=== PATIENT | female | born 1965 | race Caucasian/White ===

== ENCOUNTER 2017-08-09 17:50 | Emergency (ER) | payer BC ==
[~2017-08-09] VITALS: Ht 180.3 cm; Wt 68.5 kg
[~2017-08-09 17:50] MED LIST: ASCO500T3 PO; FERR500P8 MC
--- NOTE | 2017-08-09 18:11 | EKG ---
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
--- NOTE | 2017-08-09 18:34 | PHYS DOC ---
Past History Past Medical History: Anemia Past Surgical History: No Surgical History Alcohol Use: Occasionally Drug Use: None Adult General Chief Complaint Chief Complaint: CHEST PAIN HPI HPI Patient is a 51 year old F who presents with chest pain and weakness over the past 24 hours. Patient states she has felt weak actually over the past 3 days and the chest pain has been over the last 24 hours. Patient states the last time she felt this way she had severe anemia in 2014 in which she had to be admitted to the hospital and transfused. Patient states that it should be due to the anemia to heavy vaginal bleeding. Patient denies any previous cardiac history. Patient denies any smoking. Patient denies any PE or DVT risk factors. Patient denies any fevers. Patient denies any cough/cold/congestion. Patient has no other complaints. Review of Systems Review of Systems GEN: Weakness HEENT: Denies blurred vision, sore throat CV: Chest pain RESP: Denies shortness of air, cough GI: Denies n/v/d NEURO: Denies confusion, dizziness MSK: Denies weakness, joint pain/swelling All other systems were reviewed and found to be within normal limits, except as documented in this note. Allergies Allergies Allergies Coded Allergies Type Severity Reaction Last Updated Verified No Known Drug Allergies 02/24/15 No Physical Exam Physical Exam GEN.: No apparent distress. Alert and oriented. HEENT: Head is normocephalic, atraumatic NECK: Supple. LUNGS: CTAB. HEART: Tachycardia, S1, S2 present. Peripheral pulses intact ABDOMEN: Soft, nontender. Positive bowel sounds. EXTREMITIES: Without any cyanosis. NEUROLOGIC: Normal speech, normal tone PSYCHIATRIC: Normal affect, normal mood. SKIN: No ulcerations Current Patient Data Vital Signs Vital Signs Date Time Temp Pulse Resp B/P (MAP) Pulse Ox O2 Delivery O2 Flow Rate FiO2 08/09/17 18:13 98.2 116 18 100 Room Air EKG EKG 1803: EKG shows sinus tach rate of 109 no STEMI[] Radiology/Procedures Radiology/Procedures []Chest x-ray NAD Course & Med Decision Making Course & Med Decision Making Pertinent Labs and Imaging studies reviewed. (See chart for details) ED course: Patient was seen and examined emergency room cardiac workup was ordered along with a d-dimer and a chest x-ray Patient's d-dimer was negative Patient was reevaluated in which patient was asymptomatic having no chest pain. Patient was updated on lab results and radiology results. Patient's HEART score was 2. I had a discussion with the patient in regards to her cardiac risk factors and what her heart score of 2 means and patient was comfortable being discharged home with a cardiac workup as an outpatient. Patient did not want to be admitted to the hospital. I recommended short-term follow-up with PCP in one to 2 days and return if symptoms increase. MDM: After reviewing the chart, CC/HPI/PMH, physical exam, [lab results], [ radiological results], I do not believe the patient having acute SD (HEART score =2), PE, low suspicion for acute thoracic aortic dissection. On reexamination patient is asymptomatic having no chest pain. I believe patient stable for discharge. Recommended an outpatient cardiac workup based off her cardiac risk factors. Additional verbal discharge instructions were provided to the patient and that if symptoms get worse or any new symptoms arise that are worrisome to the patient she is to return to the emergency room immediately [] Dragon Disclaimer Dragon Disclaimer This electronic medical record was generated, in whole or in part, using a voice recognition dictation system. Departure Departure: Impression: Primary Impression: Chest pain Disposition: HOME, SELF-CARE Condition: IMPROVED Referrals: PCP,NO (PCP) Patient Instructions: Chest Pain (Nonspecific) Additional Instructions: Please follow-up with your family doctor in the next one to 2 days for outpatient cardiac workup and return symptoms increase. PIEDAD SZYMANSKI DO Aug 09, 2017 18:34
[2017-08-09 18:36] LABS: BASO # 0.1 x10^3/uL (0.0-0.2); BASO % 1 % (0-3); EOS # 0.1 x10^3/uL (0.0-0.7); EOS % 2 % (0-3); HEMATOCRIT 40.3 % (36.0-47.0); HEMOGLOBIN 13.6 g/dL (12.0-15.5); LYMPH # 1.6 x10^3/uL (1.0-4.8); LYMPH % 37 % (24-48); MEAN CORPUSCULAR HEMOGLOBIN 31 pg (25-35); MEAN CORPUSCULAR HGB CONC 34 g/dL (31-37); MEAN CORPUSCULAR VOLUME 92 fL (79-100); MONO # 0.6 x10^3/uL (0.0-1.1); MONO % 13 % (0-9); NEUT % 47 % (31-73); PLATELET COUNT 271 x10^3/uL (140-400); RED BLOOD COUNT 4.39 x10^6/uL (3.50-5.40); RED CELL DISTRIBUTION WIDTH 13.6 % (11.5-14.5); WHITE BLOOD COUNT 4.3 x10^3/uL (4.0-11.0)
[2017-08-09 18:42] LABS: ALBUMIN 4.1 g/dL (3.4-5.0); CALCIUM 9.8 mg/dL (8.5-10.1); CREATININE 0.7 mg/dL (0.6-1.0); GFR 88.9; POTASSIUM 3.3 mmol/L (3.5-5.1); TOTAL BILIRUBIN 0.5 mg/dL (0.2-1.0); TOTAL PROTEIN 8.3 g/dL (6.4-8.2)
[2017-08-09 20:03] LABS: BILIRUBIN,URINE NEG (NEG); CLARITY,URINE CLEAR; COLOR,URINE STRAW; GLUCOSE,URINE NEG (NEG)
[2017-08-09 20:04] LABS: BACTERIA,URINE MOD /HPF (0-FEW); NITRITE,URINE NEG (NEG); SQUAMOUS EPITHELIAL CELL,UR MANY /LPF; UROBILINOGEN,URINE 0.2 mg/dL (0.2 mg/dL)
[2017-08-09 20:15] VITALS: BP 132/86
--- NOTE | 2017-08-10 08:11 | RAD ---
Portable AP view CXR: Clinical indications: Chest pain today. Comparison: February 24, 2015 Findings: No acute lung infiltrate or pleural effusion or pulmonary edema or lung mass or pneumothorax is seen. The heart size, pulmonary vasculature, mediastinum and both shasha are unremarkable. Old healed fracture of the lateral posterior aspect of the right seventh rib is seen. Impression: No acute radiographic abnormality is seen.
== END 2017-08-09 20:21 | disposition home or self-care (01) ==
LOC: ER 17:50
DX: R07.9 Chest pain, unspecified (principal); Z86.2 Personal history of diseases of the blood and blood-forming organs and certain disorders involving the immune mechanism
CPT/HCPCS: 36415; 71045; 80053; 81001; 84484; 85025; 85379; 87086; 93005; 99285

== ENCOUNTER 2019-02-14 15:05 | Emergency (ER) | payer BC ==
[~2019-02-14] VITALS: Ht 177.8 cm; Wt 68.0 kg
[2019-02-14] MEDS ORDERED: IV NORMAL SALINE 1,000ML 1,000 ML IV ONE (17:00)
--- NOTE | 2019-02-14 17:08 | RAD ---
CHEST PA LATERAL History: Dizziness. Comparison: August 09, 2017. Findings: No consolidation or pleural effusion. Normal heart size. Pectus excavatum. Impression: 1. No acute cardiopulmonary process. Electronically signed by: Elio Li DO (02/14/2019 5:05 PM) [facility]
--- NOTE | 2019-02-14 17:12 | PHYS DOC ---
Past History Past Medical History: No Pertinent History, Anemia (TAYLER SZYMANSKI DO) Past Surgical History: No Surgical History (TAYLER SZYMANSKI DO) Alcohol Use: Occasionally Drug Use: None (TAYLER SZYMANSKI DO) Adult General Chief Complaint Chief Complaint: DIZZY/LIGHT HEADED HPI HPI 53-year-old female presents with central back pain, chest tightness and general fatigue. The patient was sitting at work when she had a sudden squeezing pain in her back just below her shoulder blades. It radiated around to the sides of her chest. This diagnosis there for about an hour and then it went away. The patient laid down to take a nap and when she woke up it was gone. After she woke up, she had some tingling in her bilateral hands. She continues to feel weak like if she were to do any serious exertion she might pass out. She's been eating and drinking normally. She has not felt. She's just felt generally fatigued and ill. She denies nausea, vomiting, shortness of breath, diaphoresis, diarrhea. Denies fever or chills. (TAYLER SZYMANKSI DO) Review of Systems Review of Systems Constitutional: Denies fever or chills. General fatigue [] Eyes: Denies change in visual acuity, redness, or eye pain [] HENT: Denies nasal congestion or sore throat [] Respiratory: Denies cough or shortness of breath [] Cardiovascular: No additional information not addressed in HPI [] GI: Denies abdominal pain, nausea, vomiting, bloody stools or diarrhea [] : Denies dysuria or hematuria [] Musculoskeletal: Denies back pain or joint pain [] Integument: Denies rash or skin lesions [] Neurologic: Denies headache, focal weakness. Tingling in bilateral hands [] Endocrine: Denies polyuria or polydipsia [] All other systems were reviewed and found to be within normal limits, except as documented in this note. (TAYLER SZYMANSKI DO) Current Medications Current Medications Current Medications Medications (Trade) Dose Ordered Sig/Darwin Start Time Stop Time Status Last Admin Dose Admin Sodium Chloride 1,000 ml @ 1,000 mls/hr 1X ONCE 02/14/19 17:00 02/14/19 17:59 (TAYLER SZYMANSKI DO) Allergies Allergies Allergies Coded Allergies Type Severity Reaction Last Updated Verified No Known Drug Allergies 02/24/15 No (TAYLER SZYMANSKI DO) Physical Exam Physical Exam Constitutional: Well developed, well nourished, no acute distress, non-toxic appearance. [] HENT: Normocephalic, atraumatic, bilateral external ears normal, oropharynx moist, no oral exudates, nose normal. [] Eyes: PERRLA, EOMI, conjunctiva normal, no discharge. [] Neck: Normal range of motion, no tenderness, supple, no stridor. [] Cardiovascular:Heart rate regular rhythm, no murmur [] Lungs & Thorax: Bilateral breath sounds clear to auscultation [] Abdomen: Bowel sounds normal, soft, no tenderness, no masses, no pulsatile masses. [] Skin: Warm, dry, no erythema, no rash. [] Back: No tenderness, no CVA tenderness. [] Extremities: No tenderness, no cyanosis, no clubbing, ROM intact, no edema. [] Neurologic: Alert and oriented X 3, normal motor function, normal sensory function, no focal deficits noted. [] Psychologic: Affect normal, judgement normal, mood normal. [] (TAYLER SZYMANSKI DO) Current Patient Data Vital Signs Vital Signs Date Time Temp Pulse Resp B/P (MAP) Pulse Ox O2 Delivery O2 Flow Rate FiO2 02/14/19 16:46 98.0 81 20 99 Room Air (TAYLER SZYMANSKI DO) EKG EKG Sinus rhythm, rate 90, leftward axis, right bundle branch block, no ST elevations or depressions.[] (TAYLER SZYMANSKI DO) Radiology/Procedures Radiology/Procedures [] Impressions: CHEST PA LATERAL History: Dizziness. Comparison: August 09, 2017. Findings: No consolidation or pleural effusion. Normal heart size. Pectus excavatum. Impression: 1. No acute cardiopulmonary process. Electronically signed by: Elio Li DO (02/14/2019 5:05 PM) [facility] DICTATED AND SIGNED BY: ELIO LI DO DATE: 02/14/19 1706 CC: TAYLER SZYMANSKI DO; PCP,NO ~ (TAYLER SZYMANSKI DO) Course & Med Decision Making Course & Med Decision Making Pertinent Labs and Imaging studies reviewed. (See chart for details) Patient's chest x-ray is unremarkable. Her EKG is unremarkable. []I am signing the patient out to Dr. Soto at 1830. He will follow up on the patient's results and determine her final disposition. (TAYLER SZYMANSKI DO) Course & Med Decision Making Patient sign out received from Dr. Szymanski at 6:30 PM asked me to follow-up on lab work troponin. Troponin EKG lab work essentially unremarkable. Patient on reexamination and history taking I talked to her in detail she's been having several weeks of just not feeling right overall fatigue no chest pain really she did wake up with some upper back pain earlier in the day that has gone away she just still doesn't feel exactly right she has had intermittent tingling of her upper extremities in the past as well. Patient never had any chest pain nevertheless the heart score is a only a 3, if you give one for history actually probably only had 2 deathly not more than a 3. Differential would include menopausal symptoms versus hypothyroidism, I do not think she has acute coronary syndrome based on the timeline in the ER workup she does have follow-up next week with her primary doctor return precautions discussed in detail and she voiced understanding of the instructions (ANA SOTO MD) Dragon Disclaimer Dragon Disclaimer This electronic medical record was generated, in whole or in part, using a voice recognition dictation system. (TAYLER SZYMANSKI DO) Departure Departure: Disposition: 01 HOME/RESIDENCE PRIOR TO ADM Condition: STABLE Referrals: PCP,NO (PCP) TAYLER SZYMANSKI DO Feb 14, 2019 17:12 ANA SOTO MD Feb 14, 2019 19:25
[2019-02-14 17:57] LABS: BILIRUBIN,URINE NEG (NEG); CLARITY,URINE CLEAR; COLOR,URINE STRAW; GLUCOSE,URINE NEG (NEG)
[2019-02-14 17:58] LABS: BACTERIA,URINE MOD /HPF (0-FEW); NITRITE,URINE NEG (NEG); RBC,URINE 0 /HPF (0-2); SQUAMOUS EPITHELIAL CELL,UR OCC /LPF; UROBILINOGEN,URINE 0.2 mg/dL (0.2 mg/dL); WBC,URINE OCC /HPF (0-4)
[2019-02-14 18:04] LABS: BASO % 1 % (0-3); EOS # 0.1 x10^3/uL (0.0-0.7); EOS % 2 % (0-3); HEMATOCRIT 37.6 % (36.0-47.0); HEMOGLOBIN 12.5 g/dL (12.0-15.5); LYMPH # 1.1 x10^3/uL (1.0-4.8); LYMPH % 23 % (24-48); MEAN CORPUSCULAR HEMOGLOBIN 30 pg (25-35); MEAN CORPUSCULAR HGB CONC 33 g/dL (31-37); MEAN CORPUSCULAR VOLUME 90 fL (79-100); MONO # 0.5 x10^3/uL (0.0-1.1); MONO % 10 % (0-9); NEUT # 3.1 x10^3uL (1.8-7.7); NEUT % 64 % (31-73); PLATELET COUNT 216 x10^3/uL (140-400); RED BLOOD COUNT 4.19 x10^6/uL (3.50-5.40); RED CELL DISTRIBUTION WIDTH 13.9 % (11.5-14.5); WHITE BLOOD COUNT 4.9 x10^3/uL (4.0-11.0)
--- NOTE | 2019-02-14 18:15 | EKG ---
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
[2019-02-14 18:17] LABS: ALBUMIN 3.9 g/dL (3.4-5.0); ALBUMIN/GLOBULIN RATIO 1.1 (1.0-1.7); CALCIUM 9.3 mg/dL (8.5-10.1); CREATININE 0.6 mg/dL (0.6-1.0); GFR 105.4; POTASSIUM 3.3 mmol/L (3.5-5.1); TOTAL BILIRUBIN 0.5 mg/dL (0.2-1.0); TOTAL PROTEIN 7.5 g/dL (6.4-8.2)
[2019-02-14 18:48] LABS: BARBITURATES NEG (NEG); BENZODIAZEPINES NEG (NEG); CANNABINOIDS NEG (NEG); COCAINE NEG (NEG); METHADONE NEG (NEG); OPIATES NEG (NEG); PHENCYCLIDINE NEG (NEG)
[2019-02-14 18:51] LABS: AMPHETAMINE/METHAMPHETAMINE NEG (NEG)
[2019-02-14 19:42] VITALS: BP 127/93
== END 2019-02-14 19:42 | disposition home or self-care (01) ==
LOC: ER 15:11
DX: M54.6 Pain in thoracic spine (principal); R07.89 Other chest pain; R53.83 Other fatigue; R42 Dizziness and giddiness; Z86.2 Personal history of diseases of the blood and blood-forming organs and certain disorders involving the immune mechanism
CPT/HCPCS: 36415; 71046; 80053; 80307; 81001; 84484; 85025; 87086; 93005; 96360; 99285; J7030

== ENCOUNTER → 2020-12-18 | Outpatient (CLI) | payer BC ==
--- NOTE | 2020-12-18 13:34 | RAD ---
EXAM: Right lower extremity venous Doppler sonogram. HISTORY: Pain and swelling. TECHNIQUE: Rodriguez scale and color Doppler sonographic evaluation of the right lower extremity veins wit h spectral waveform analysis was performed. FINDINGS: There is normal color flow, normal compressibility and there are normal spectral waveforms in the common femoral, superficial femoral, popliteal, posterior tibial and greater saphenous veins. IMPRESSION: No Doppler evidence of lower extremity deep venous thrombosis. Electronically signed by: Georgiana Davalos MD (12/18/2020 1:31 PM) [id number]
== END ==
LOC: US 12:51
PROVIDERS: ATTEND Family Medicine
DX: R22.41 Localized swelling, mass and lump, right lower limb (principal)
CPT/HCPCS: 93971